=== PATIENT | female | born 1960 | race Caucasian/White ===

== ENCOUNTER → 2023-09-14 12:29 | Outpatient (CLI) | payer BC, SELFPAY ==
--- NOTE | ~2023-09-14 | US_ITS ---
EXAMINATION: US venous doppler LE RT DATE: 09/14/2023 13:19 INDICATION: Right thigh mass TECHNIQUE: Grayscale ultrasound images without and with compression and Doppler ultrasound images of the right lower extremity veins were obtained. COMPARISON: None. FINDINGS: The visualized portions of right common femoral vein, profunda (deep) femoral vein, femoral vein, pop liteal vein, peroneal trunk, posterior tibial veins, peroneal veins, gastrocnemius vein and greater s aphenous vein outflow are patent. 4.6 x 5.1 x 1.7 cm anechoic complex cystic lesion at the medial thi gh at the region of the palpable abnormality. There are a few subtle linear internal septations and a 1.3 x 0.9 x 0.6 cm peripheral nodular echogenic region. No evident internal vascular flow either wit hin the anechoic or echogenic regions, the latter which could represent either a lobule of fat extend ing into the fluid collection or residual clot in the setting of an evolving posttraumatic hematoma. IMPRESSION: 1. No deep venous thrombosis in the right lower limb. 2. 5.1 x 4.6 x 1.7 cm likely complex fluid collection in the subcutaneous tissues at the region of co ncern likely representing an evolving hematoma. Differential includes less likely abscess in the appr opriate clinical setting or much less likely a cystic neoplasm. Could consider either clinical follow -up, follow-up imaging or aspiration/biopsy depending on the level of clinical concern. Reviewed, dictated and finalized at location A. IMPRESSION: 1. No deep venous thrombosis in the right lower limb. 2. 5.1 x 4.6 x 1.7 cm likely complex fluid collection in the subcutaneous tissu es at the region of concern likely representing an evolving hematoma. Different ial includes less likely abscess in the appropriate clinical setting or much le ss likely a cystic neoplasm. Could consider either clinical follow-up, follow-u p imaging or aspiration/biopsy depending on the level of clinical concern.
== END ==
PROVIDERS: PCP Internal Medicine; Visit Provider Registered Nurse
DX: R22.41 Localized swelling, mass and lump, right lower limb (principal); M79.89 Other specified soft tissue disorders
CPT/HCPCS: 93971